=== PATIENT | female | born 1950 | race Caucasian/White ===

== ENCOUNTER 2022-01-07 14:11 | Inpatient (IN) | payer OTHER ==
[2022-01-07 14:58] LABS: Absolute Lymphocytes (CBC) 1.5 K/uL (0.7-4.9); Lymphocytes % 37.7 % (15.3-44.8); MCV 88.4 fL (80-100); MPV 9.7 fL (7.6-11.3); RBC Red Blood Cell Count 4.18 M/uL (3.86-4.86)
[2022-01-07 15:04] LABS: Protime INR 1.08
[2022-01-07 15:14] LABS: Albumin 3.8 g/dL (3.4-5.0); Bilirubin Total 0.5 mg/dL (0.2-1.0); Potassium 3.4 mmol/L (3.5-5.1)
--- NOTE | 2022-01-07 15:14 | RAD REPORT ---
EXAM DESCRIPTION: RAD - Chest Single View - 01/07/2022 3:04 pm CLINICAL HISTORY: AMS Chest pain. COMPARISON: Chest Single View dated 12/09/2021; CHEST SINGLE VIEW dated 09/27/2009 FINDINGS: Portable technique limits examination quality. The lungs are grossly clear. The heart is normal in size. No displaced fractures. IMPRESSION: No acute intrathoracic process suspected.
[2022-01-07] MEDS ORDERED: LORazepam 2 MG/ML VIAL ONE (15:16)
[2022-01-07 16:52] LABS: SARS-COV-2 RT PCR NEGATIVE (NEGATIVE)
--- NOTE | 2022-01-07 18:11 | RAD REPORT ---
EXAM DESCRIPTION: CT - Head Brain Wo Cont - 01/07/2022 5:32 pm CLINICAL HISTORY: AMS Headache, drowsiness, alteration of awareness. COMPARISON: No comparisons TECHNIQUE: All CT scans are performed using dose optimization technique as appropriate and may inclu de automated exposure control or mA/KV adjustment according to patient size. FINDINGS: No intracranial hemorrhage, hydrocephalus or extra-axial fluid collection.Moderate brain a trophy noted.No areas of brain edema or evidence of midline shift. Moderate opacification right maxillary antrum. The remainder the paranasal sinuses and mastoids are c lear. The calvarium is intact. IMPRESSION: No acute intracranial abnormality.
[2022-01-07 18:15] LABS: Urine Blood Negative (Negative); Urine Glucose Negative (Negative); Urine Protein 1+ (Negative); Urine Specific Gravity >=1.030 (1.005-1.030)
--- NOTE | 2022-01-07 18:33 | ER ---
Nurse's Notes [facility] Name: Ida Garvin Age: 71 yrs Sex: Female : 1950 Arrival Date: 01/07/2022 Time: 14:13 Bed 15 Private MD: Diagnosis: UTI/ Urinary tract infection, site not specified;Altered mental status, unspecified Presentation: 01/07 14:16 Chief complaint: EMS states: ALTERED AND COMBATIVE AT HOME WITH FAMILY. ESCAPED FROM [facility] Y/D. H/O SAME IN PAST. Coronavirus screen: At this time, the client does not indicate any symptoms associated with coronavirus-19. Ebola Screen: No symptoms or risks identified at this time. Initial Sepsis Screen: Does the patient meet any 2 criteria? Altered Mental Status. HR > 90 bpm. Yes Does the patient have a suspected source of infection? Yes: Dysuria/Frequency/Urgency/UTI. Risk Assessment: Do you want to hurt yourself or someone else? Patient reports no desire to harm self or others. Onset of symptoms was January 07, 2022. Care prior to arrival: Medication(s) given: 5MG VERSED IV initiated. 20 GA, in the right forearm, Glucose check: 117. 14:16 Method Of Arrival: EMS: [facility] bp 14:16 Acuity: MAMADOU 2 bp Triage Assessment: 14:20 General: Appears distressed, unkempt, Behavior is agitated, anxious, uncooperative. bp Pain: Denies pain. EENT: No deficits noted. Neuro: Level of Consciousness is awake, confused, Oriented to person, Speech INAPPROPRIATE. Cardiovascular: Rhythm is sinus tachycardia. Respiratory: No deficits noted. GI: No signs and/or symptoms were reported involving the gastrointestinal system. : No signs and/or symptoms were reported regarding the genitourinary system. Derm: No deficits noted. Musculoskeletal: No deficits noted. Historical: - Allergies: 14:19 dopenizil; bp - PMHx: 14:19 irregular heart beat; Hypertensive disorder; Hypercholesterolemia; Diabetes mellitus; bp Dementia; - Immunization history:: Adult Immunizations unknown. - Social history:: Smoking status: unknown. - Family history:: not pertinent. - Hospitalizations: : No recent hospitalization is reported. Screenin:20 Abuse screen: Denies threats or abuse. Denies injuries from another. Nutritional bp screening: No deficits noted. Tuberculosis screening: No symptoms or risk factors identified. Fall Risk Fall in past 12 months (25 points). Secondary diagnosis (15 points) dementia, IV access (20 points). Ambulatory Aid- None/Bed Rest/Nurse Assist (0 pts). Gait- Weak (10 pts.). Mental Status- Overestimates/Forgets Limitations (15 pts.). Total Ibarra Fall Scale indicates High Risk Score (45 or more points). Fall prevention measures have been instituted. Side Rails Up X 2 Placed Close to Nursing Station Frequent Obs/Assessments Occuring As available patient and family educated on Fall Prevention Program and Strategies. Assessment: 14:19 General: SEE TRIAGE NOTE. bp 15:20 Reassessment: PT INCREASINGLY UNCOOPERATIVE. REQUIRING PHYSICAL INTERVENTION TO RETURN bp TO BED. ATTEMPTING TO ELOPE AND RESISTANT TO HEALTH CARE ACTIVITIES. MD NOTIFIED. 17:09 Reassessment: PT SLEEPING, BUT AROUSES TO VERBAL STIMULI. REMAINS UNCOOPERATIVE. bp 17:22 Reassessment: MD AT B/S WITH FAMILY. bp 18:30 Reassessment: ADMIT INITIATED. PER FAMILY DISCUSSION WITH MD, SPOUSE UNABLE TO CARE FOR bp PT, AND PLACEMENT WILL BE NEEDED FOR DISCHARGE. Vital Signs: 14:16 BP 128 / 92; Pulse 93; Resp 30; Temp 98.1; Pulse Ox 97% ; bp 14:26 Temp 98.3(O); Pain 0/10; ss 15:20 BP 121 / 70; Pulse 73; Resp 27; Pulse Ox 97% ; bp 17:09 BP 111 / 62; Pulse 60; Resp 15; Pulse Ox 100% on 3 lpm NC; bp 18:00 BP 139 / 76; Pulse 76; Resp 16; Pulse Ox 100% ; bp 21:44 BP 91 / 50; Pulse 57; Pulse Ox 100% ; kl ED Course: 14:13 Patient arrived in ED. eb 14:14 Braulio Hilton, RN is Primary Nurse. bp 14:18 Triage completed. bp 14:19 Arm band placed on. bp 14:20 Patient has correct armband on for positive identification. Bed in low position. Call bp light in reach. Side rails up X2. 14:20 Maintain EMS IV. Dressing intact. Good blood return noted. Site clean \T\ dry. Gauge \T\ bp site: 20 GA R FA. 14:21 Phil Red MD is Attending Physician. rn 15:05 Chest Single View XRAY In Process Unspecified. EDMS 15:25 Blood Culture Adult (2) Sent. mm9 15:26 Initial lab(s) drawn, by me, sent to lab. EKG done, by ED staff, reviewed by Phil Red MD. 17:26 per patient's / [facility] is willing to accept his / they eb are requesting all results and clinical's to be faxed to [phone]. 17:33 CT Head Brain wo Cont In Process Unspecified. EDMS 18:05 Straight cath inserted, using sterile technique, 16 Fr. Specimen obtained. mm9 18:05 Urine Microscopic Only Sent. mm9 18:05 Urine Culture Sent. mm9 18:05 Urine Drug Screen Sent. mm9 18:05 Urine collected: straight cath specimen, cloudy, eamon colored. mm9 18:32 Angel Cortez MD is Hospitalizing Provider. rn 21:44 No provider procedures requiring assistance completed. Patient admitted, IV remains in kl place. 01/08 03:25 Primary Nurse role handed off by Braulio Hilton RN 06:20 Colt Robles RN is Primary Nurse. ke1 Administered Medications: 01/07 15:17 Drug: Ativan (LORazepam) 1 mg Route: IVP; Site: right forearm; bp 15:26 Follow up: Response: No adverse reaction bp 18:50 Drug: Rocephin (cefTRIAXone) 1 grams Route: IV; Rate: calculated rate; Site: right bp forearm; Medication: 21:44 VIS not applicable for this client. Outcome: 18:32 Decision to Hospitalize by Provider. rn 21:44 Admitted to ER Hold. Please see [facility] for further documentation. kl 21:44 Condition: stable 21:44 Instructed on the need for admit, Demonstrated understanding of instructions. 01/09 13:22 Patient left the ED. eb Signatures: Dispatcher [employer] EDMS Gisela Baires, RN Phil Pacheco MD MD rn Smirch, Shelby, RN RN Braulio Hilton RN RN Matilda Razo Prabha Mackay Colt Robles RN RN ke1 Martinez, Maria mm9
--- NOTE | 2022-01-07 18:33 | EDPHYS ---
Physician Documentation [facility] Name: Ida Garvin Age: 71 yrs Sex: Female : 1950 Arrival Date: 01/07/2022 Time: 14:13 Bed 15 Private MD: ED Physician Phil Red HPI: 01/07 15:19 This 71 yrs old Female presents to ER via EMS with complaints of AMS. rn 15:16 EMS reports patient escaped from [facility] recently, at family's house, becoming rn agitated and altered. Has does this before per family, and was UTI. Has dementia. Given 5mg versed by EMS for agitation.. 15:19 The patient presents with agitation, confusion. Onset: The symptoms/episode rn began/occurred at an unknown time. Possible causes: unknown. Associated signs and symptoms: Pertinent positives: agitation, Pertinent negatives: abdominal pain, chest pain, headache. Current symptoms: In the emergency department the patient's symptoms have improved. The patient has experienced a previous episode. The patient has not recently seen a physician. Historical: - Allergies: 14:19 dopenizil; bp - PMHx: 14:19 irregular heart beat; Hypertensive disorder; Hypercholesterolemia; Diabetes mellitus; bp Dementia; - Immunization history:: Adult Immunizations unknown. - Social history:: Smoking status: unknown. - Family history:: not pertinent. - Hospitalizations: : No recent hospitalization is reported. ROS: 15:19 Constitutional: Negative for fever, chills, and weight loss, Eyes: Negative for injury, rn pain, redness, and discharge, Neck: Negative for injury, pain, and swelling, Cardiovascular: Negative for chest pain, palpitations, and edema, Respiratory: Negative for shortness of breath, cough, wheezing, and pleuritic chest pain, Abdomen/GI: Negative for abdominal pain, nausea, vomiting, diarrhea, and constipation, Back: Negative for injury and pain, MS/Extremity: Negative for injury and deformity, Skin: Negative for injury, rash, and discoloration, Neuro: Negative for headache, weakness, numbness, tingling, and seizure. Exam: 15:19 Constitutional: This is a well developed, well nourished patient who is awake, alert, rn and in no acute distress. Head/Face: Normocephalic, atraumatic. Eyes: Periorbital areas with no swelling, redness, or edema. Cardiovascular: Regular rate and rhythm. No pulse deficits. Respiratory: No increased work of breathing, no retractions or nasal flaring. Abdomen/GI: Soft, non-tender Skin: Warm, dry MS/ Extremity: Pulses equal, no cyanosis. Neuro: Awake and alert, GCS 15, oriented to person, not place or time. Cranial nerves II-XII grossly intact. Motor strength 5/5 in all extremities. Sensory grossly intact. Vital Signs: 14:16 BP 128 / 92; Pulse 93; Resp 30; Temp 98.1; Pulse Ox 97% ; bp 14:26 Temp 98.3(O); Pain 0/10; ss 15:20 BP 121 / 70; Pulse 73; Resp 27; Pulse Ox 97% ; bp 17:09 BP 111 / 62; Pulse 60; Resp 15; Pulse Ox 100% on 3 lpm NC; bp 18:00 BP 139 / 76; Pulse 76; Resp 16; Pulse Ox 100% ; bp 21:44 BP 91 / 50; Pulse 57; Pulse Ox 100% ; kl MDM: 14:21 Patient medically screened. rn 17:28 ED course: Spoke at length with and family member, he states cannot take rn patient home, unable to control her, is combative and altered. Waiting on ct head and urine. states has spoken with [facility] and they are willing to accept patient. Will fax over clinicals when medically cleared. . 18:30 Differential Diagnosis: CVA, electrolyte abnormality, intracranial bleed, sepsis, UTI, rn volume depletion. Data reviewed: vital signs, nurses notes, lab test result(s), radiologic studies, CT scan, and as a result, I will admit patient. Counseling: I had a detailed discussion with the patient and/or guardian regarding: the historical points, exam findings, and any diagnostic results supporting the discharge/admit diagnosis, lab results, radiology results, the need for further work-up and treatment in the hospital. Response to treatment: the patient's symptoms have mildly improved after treatment, and as a result, I will admit patient. 01/07 14:31 Order name: Blood Culture Adult (2) rn 01/07 14:31 Order name: CBC with Diff; Complete Time: 15:21 rn 01/07 14:31 Order name: CMP; Complete Time: 15:21 rn 01/07 14:31 Order name: Lactate w/ 2H reflex if indic.; Complete Time: 15:21 rn 01/07 14:31 Order name: Protime (+inr); Complete Time: 15:21 rn 01/07 14:31 Order name: Ptt, Activated; Complete Time: 15:21 rn 01/07 14:31 Order name: Urine Culture rn 01/07 14:31 Order name: Urine Microscopic Only; Complete Time: 20:03 rn 01/07 14:31 Order name: Urine Drug Screen; Complete Time: 20:03 rn 01/07 14:31 Order name: COVID-19/FLU A+B; Complete Time: 16:53 rn 01/07 18:15 Order name: Urine Dipstick-Ancillary; Complete Time: 18:30 EDMS 01/08 03:40 Order name: CBC with Automated Diff EDMS 01/08 03:40 Order name: Basic Metabolic Panel EDMS 01/08 03:40 Order name: Phosphorus EDMS 01/07 14:31 Order name: Chest Single View XRAY; Complete Time: 15:21 rn 01/07 14:31 Order name: EKG; Complete Time: 14:31 rn 01/07 16:54 Order name: CT Head Brain wo Cont; Complete Time: 18:30 rn 01/08 03:40 Order name: Lipid Profile EDMS 01/08 03:40 Order name: Magnesium EDMS 01/08 03:40 Order name: Thyroid Stimulating Hormone EDMS 01/08 07:08 Order name: Hemoglobin A1c EDMS 01/08 09:08 Order name: Glucose, Ancillary Testing EDMS 01/08 15:00 Order name: Basic Metabolic Panel EDMS 01/08 15:21 Order name: Glucose, Ancillary Testing EDMS 01/08 20:21 Order name: Glucose, Ancillary Testing EDMS 01/09 03:35 Order name: Basic Metabolic Panel EDMS 01/09 03:37 Order name: CBC with Automated Diff EDMS 01/09 07:49 Order name: Glucose, Ancillary Testing EDMS 01/07 14:31 Order name: Accucheck; Complete Time: 15:10 rn 01/07 14:31 Order name: Cardiac monitoring; Complete Time: 15:10 rn 01/07 14:31 Order name: EKG - Nurse/Tech; Complete Time: 15:10 rn 01/07 14:31 Order name: IV Saline Lock - Large Bore; Complete Time: 15:10 rn 01/07 14:31 Order name: Labs collected and sent; Complete Time: 15:10 rn 01/07 14:31 Order name: O2 Per Protocol; Complete Time: 15:10 rn 01/07 14:31 Order name: O2 Sat Monitoring; Complete Time: 15:10 rn 01/07 14:31 Order name: Urine Dipstick-Ancillary (obtain specimen); Complete Time: 18:05 rn 01/07 14:31 Order name: Vital Signs; Complete Time: 15:11 rn Administered Medications: 15:17 Drug: Ativan (LORazepam) 1 mg Route: IVP; Site: right forearm; bp 15:26 Follow up: Response: No adverse reaction bp 18:50 Drug: Rocephin (cefTRIAXone) 1 grams Route: IV; Rate: calculated rate; Site: right bp forearm; Disposition Summary: 01/07/22 18:32 Hospitalization Ordered Hospitalization Status: Inpatient Admission rn Provider: Angel Cortez rn Condition: Stable rn Problem: new rn Symptoms: have improved rn Bed/Room Type: Standard rn Location: [facility] ER HOLD(01/08/22 12:22) eb Room Assignment: ERHOLD-(01/08/22 12:23) eb Diagnosis - UTI/ Urinary tract infection, site not specified rn - Altered mental status, unspecified rn Forms: - Medication Reconciliation Form rn - SBAR form rn Signatures: Dispatcher [employer] EDMS Velia Rosas RN RN mw Phil Red MD MD rn Peltier, Brian RN RN Matilda Syed Sophia, PA-C PA-C sb4 Corrections: (The following items were deleted from the chart) 19:33 18:32 Telemetry/MedSurg (Inpatient) rn mw 19:33 18:32 rn mw 01/08 12:08 1202 19:33 [facility] ER HOLD [facility] 01/08 12:08 1202 19:33 ERHOLD- [facility] 01/08 12:22 12:08 Telemetry/MedSurg (Inpatient) eb eb 12:22 12:08 [facility] eb eb 12:23 12:22 eb eb
[2022-01-07 18:34] LABS: Barbiturates NEGATIVE (NEGATIVE); Benzodiazepines POSITIVE (NEGATIVE); Cocaine NEGATIVE (NEGATIVE); METHAMPHETAM NEGATIVE (NEGATIVE); Methadone NEGATIVE (NEGATIVE); Opiates NEGATIVE (NEGATIVE); Phencyclidine NEGATIVE (NEGATIVE); THC Cannibis NEGATIVE (NEGATIVE); Urine Bacteria 20-50 /HPF (<20); Urine Mucus 3+ /HPF (None Seen)
[2022-01-07] MEDS ORDERED: NA CHLORIDE 0.9% 100 ML IV ONE (18:51)
[2022-01-07] MEDS ORDERED: CEFTRIAXONE 1000 MG/VIAL ONE (18:51)
--- NOTE | 2022-01-07 20:49 | P.HP ---
Certification for Inpatient Patient admitted to: Inpatient With expected LOS: <2 Midnights Patient will require the following post-hospital care: None Practitioner: I am a practitioner with admitting privileges, knowledge of patient current condition, hospital course, and medical plan of care. Services: Services provided to patient in accordance with Admission requirements found in Title 42 Section 412.3 of the Code of Federal Regulations Patient History Date of Service: 01/07/22 Reason for admission: UTI/AMS History of Present Illness: Patient is a 71 year old female with past medical history of Alzheimers, hypertension, hyperlipidemia, and hypothyroidism who presented to the ED with AMS. Patient is a resident of [facility] and apparently escaped from the facility yesterday. They did not allow her to come back because she has had issues with aggression. brought her to the ED because he cannot take care of her. [facility] originally said they were willing to accept, once medically cleared. However, her urine was positive for UTI. She was started on rocephin in ED. Patient is admitted for further management. Allergies No Known Allergies Allergy (Unverified 01/24/12 09:34) Home medications list reviewed: Yes - Past Medical/Surgical History Diabetic: Yes -: Hypertension -: Hyperlipidemia -: Hypothyroidism -: Dementia Past Surgical History: Unable to obtain Psychosocial/ Personal History: Patient is . She lives at [facility]. - Family History Family History: Reviewed- Non-Contributory - Social History Smoking Status: Never smoker Alcohol use: No CD- Drugs: No Caffeine use: Yes Place of Residence: Shelter Review of Systems Unremarkable Physical Examination - Vital Signs Temperature: 98.3 F Blood Pressure: 91/50 Pulse: 57 Respirations: 16 Pulse Ox (%): 100 (room air) - Physical Exam General: Alert, In no apparent distress, Other (Agitated) HEENT: Atraumatic, PERRLA, EOMI, Sclerae nonicteric Neck: Supple, 2+ carotid pulse no bruit, No LAD, Without JVD or thyroid abnormality Respiratory: Clear to auscultation bilaterally, Normal air movement Cardiovascular: Regular rate/rhythm, Normal S1 S2 Gastrointestinal: Normal bowel sounds, No tenderness Musculoskeletal: No tenderness Integumentary: No rashes Neurological: Normal speech, Normal strength at 5/5 x4 extr, Normal tone, Dementia - Studies Laboratory Data (last 24 hrs) 01/07/22 14:40: PT 11.9, INR 1.08, APTT 30.7 01/07/22 14:40: Sodium 142, Potassium 3.4 L, BUN 14, Creatinine 0.87, Glucose 113 H, Total Bilirubin 0.5, AST 30, ALT 26, Alkaline Phosphatase 84 01/07/22 14:40: WBC 4.00 L, Hgb 12.4, Hct 37.0, Plt Count 145 L Assessment and Plan - Problems (Diagnosis) (1) UTI (urinary tract infection) Current Visit: Yes Status: Acute Qualifiers: Urinary tract infection type: acute cystitis Hematuria presence: with hematuria Qualified Code(s): N30.01 - Acute cystitis with hematuria (2) AMS (altered mental status) Current Visit: Yes Status: Acute Qualifiers: Altered mental status type: unspecified Qualified Code(s): R41.82 - Altered mental status, unspecified (3) Hypertension Current Visit: Yes Status: Chronic Qualifiers: Hypertension type: primary hypertension Qualified Code(s): I10 - Essential (primary) hypertension (4) Dementia Current Visit: Yes Status: Chronic Qualifiers: Dementia type: Alzheimer's Alzheimer's disease onset: unspecified onset Dementia severity: moderate Dementia behavioral or psychological symptom: with agitation Qualified Code(s): G30.9 - Alzheimer's disease, unspecified; F02.B11 - Dementia in other diseases classified elsewhere, moderate, with agitation (5) Hyperlipidemia Current Visit: Yes Status: Chronic Qualifiers: Hyperlipidemia type: unspecified Qualified Code(s): E78.5 - Hyperlipidemia, unspecified (6) Hypothyroidism Current Visit: Yes Status: Chronic Qualifiers: Hypothyroidism type: acquired Qualified Code(s): E03.9 - Hypothyroidism, unspecified - Plan Urine culture obtained, continue rocephin. Patient does not meet sepsis criteria at this time. Patient was originally pleasant, but sundowning in the evening, leaving her room, aggressive with staff. Given 1x geodon. Will order ativan PRN. Case management consult for transfer to [facility] once medically cleared. [facility] accu checks with mild sliding scale and diabetic diet. A1C ordered for morning along with lipid panel. Reconcile and continue home medications. Monitor and replete electrolytes per protocol. Lovenox for VTE prophylaxis. Full code. Discharge Plan: Shelter Plan to discharge in: Greater than 2 days - Advance Directives Does patient have a Living Will: Yes Does patient have a Durable POA for Healthcare: No - Code Status/Comfort Care Code Status Assessed: Yes Code Status: Full Code Physician Review: Patient Assessed, Agree with Above Assessment and Plan Critical Care: No Time Spent Managing Pts Care (In Minutes): 50
[2022-01-07] MEDS ORDERED: ALBUTEROL 2.5 MG/3 ML NEB SOL NEB PRN (21:58)
[2022-01-07] MEDS ORDERED: ONDANSETRON 4 MG/2 ML VIAL IV PRN (21:58)
[2022-01-07] MEDS ORDERED: NA CHLORIDE 0.9% 1,000 ML IV SCH (21:58)
[2022-01-07] MEDS ORDERED: ACETAMINOPHEN 325 MG TABLET PO PRN (22:02)
[2022-01-07] MEDS ORDERED: ZIPRASIDONE MESYLA 20 MG/VIAL IM ONE ×2 (22:56→22:58)
[2022-01-07] MEDS ORDERED: WATER FOR INJ,STERILE 10 ML ONE (22:57)
[2022-01-07] MEDS ORDERED: WATER FOR INJ,STERILE 10 ML IM PRN (22:58)
[2022-01-08 00:49] VITALS: BMI 30.4
[2022-01-08 03:34] LABS: Absolute Lymphocytes (CBC) 1.5 K/uL (0.7-4.9); Hematocrit 35.8 % (36.0-45.0); Lymphocytes % 37.4 % (15.3-44.8); MCV 88.5 fL (80-100); MPV 9.7 fL (7.6-11.3); RBC Red Blood Cell Count 4.05 M/uL (3.86-4.86)
[2022-01-08 03:39] LABS: Magnesium 1.9 mg/dL (1.8-2.4); Phosphorus 4.6 mg/dL (2.5-4.9); Potassium 3.3 mmol/L (3.5-5.1); Thyroid Stimulating Hormone 0.237 uIU/mL (0.360-3.740)
[2022-01-08] MEDS: INSULIN -REGULAR HUMAN 50 UNIT/0.5 ML ML SQ SCH ×5 (07:00→20:45)
[2022-01-08] MEDS ORDERED: CEFTRIAXONE 1000 MG/VIAL ONE ×2 (08:05→20:38)
[2022-01-08] MEDS ORDERED: NA CHLORIDE 0.9% 50 ML IV ONE (08:05)
[2022-01-08] MEDS ORDERED: ENOXAPARIN 40 MG/0.4 ML SQ ONE (08:06)
[2022-01-08] MEDS ORDERED: KCL 20 MEQ/100 mL IVPB 100 ML IV ONE (08:07)
[2022-01-08] MEDS ORDERED: POTASSIUM CL SA 10 MEQ TAB PO SCH ×2 (09:00→11:00)
[2022-01-08] MEDS ORDERED: KCL 20 MEQ/100 mL IVPB 20 MEQ/100 ML BAG IV SCH (09:00)
[2022-01-08] MEDS ORDERED: CEFTRIAXONE 1,000 MG in NA CHLORIDE 0.9% 50 ML IVPB SCH (09:00)
[2022-01-08] MEDS: ENOXAPARIN 40 MG/0.4 ML SQ SCH (09:00)
[2022-01-08] MEDS: LORazepam 2 MG/ML VIAL IV PRN ×4 (11:00→22:32)
[2022-01-08] MEDS ORDERED: LORazepam 2 MG/ML VIAL ONE ×5 (11:02→22:27)
[2022-01-08] MEDS ORDERED: POTASSIUM CL SA 10 MEQ TAB PO ONE ×3 (11:32→21:00)
[2022-01-08] MEDS ORDERED: ZIPRASIDONE MESYLA 20 MG/VIAL IM ONE ×2 (12:20→12:53)
[2022-01-08] MEDS ORDERED: WATER FOR INJ,STERILE 10 ML ONE (12:20)
[2022-01-08] MEDS ORDERED: WATER FOR INJ,STERILE 10 ML IM PRN (12:53)
[2022-01-08] MEDS ORDERED: LORazepam 2 MG/ML VIAL IM ONE (12:56)
[2022-01-08 15:00] LABS: Potassium 3.5 mmol/L (3.5-5.1)
[2022-01-08] MEDS: NA CHLORIDE 0.9% 1,000 ML IV SCH (15:00)
[2022-01-08] MEDS: CEFTRIAXONE 1,000 MG in NA CHLORIDE 0.9% 50 ML IVPB SCH (18:00)
[2022-01-08] MEDS ORDERED: METFORMIN HCL 500 MG TAB ONE (20:37)
[2022-01-08] MEDS: METFORMIN ER 500 MG TAB PO SCH (20:44)
[2022-01-08] MEDS: PROPAFENONE HCL 150 MG TAB PO SCH (20:45)
[2022-01-08] MEDS ORDERED: QUETIAPINE 25 MG TAB PO SCH (21:00)
[2022-01-09 03:15] LABS: Absolute Lymphocytes (CBC) 1.7 K/uL (0.7-4.9); Hematocrit 38.9 % (36.0-45.0); Lymphocytes % 39.7 % (15.3-44.8); MCV 89.5 fL (80-100); MPV 10.2 fL (7.6-11.3); RBC Red Blood Cell Count 4.35 M/uL (3.86-4.86)
[2022-01-09 03:35] LABS: Potassium 3.5 mmol/L (3.5-5.1)
[2022-01-09] MEDS: NA CHLORIDE 0.9% 1,000 ML IV SCH (04:20)
[2022-01-09] MEDS ORDERED: LEVOTHYROXINE SOD 0.125 MG TAB PO SCH ×2 (06:00)
[2022-01-09] MEDS: CEFTRIAXONE 1,000 MG in NA CHLORIDE 0.9% 50 ML IVPB SCH (06:00)
[2022-01-09] MEDS ORDERED: CEFTRIAXONE 1000 MG/VIAL ONE (06:38)
[2022-01-09] MEDS ORDERED: LORazepam 2 MG/ML VIAL ONE (06:53)
[2022-01-09] MEDS: LORazepam 2 MG/ML VIAL IV PRN (06:59)
[2022-01-09] MEDS: INSULIN -REGULAR HUMAN 50 UNIT/0.5 ML ML SQ SCH ×2 (07:30→11:30)
[2022-01-09] MEDS: METFORMIN ER 500 MG TAB PO SCH (09:00)
[2022-01-09] MEDS ORDERED: CYANOCOBALAMIN 1,000 MCG TAB PO SCH (09:00)
[2022-01-09] MEDS ORDERED: PANTOPRAZOLE 40MG TABLET PO SCH (09:00)
[2022-01-09] MEDS ORDERED: LOSARTAN POTASSIUM 50 MG TABLET PO SCH (09:00)
[2022-01-09] MEDS ORDERED: LOSARTAN/HCTZ 50-12.5 PO SCH (09:00)
[2022-01-09] MEDS ORDERED: ROSUVASTATIN 10 MG TAB PO SCH (09:00)
[2022-01-09] MEDS: ENOXAPARIN 40 MG/0.4 ML SQ SCH (09:00)
[2022-01-09] MEDS ORDERED: QUETIAPINE 25 MG TAB PO SCH (09:00)
[2022-01-09] MEDS ORDERED: VITAMIN E 1000 UNIT PO SCH (09:00)
[2022-01-09] MEDS ORDERED: VITAMIN D 5,000 UNIT CAP PO SCH (09:00)
[2022-01-09] MEDS: PROPAFENONE HCL 150 MG TAB PO SCH (09:00)
[2022-01-09] MEDS ORDERED: ZIPRASIDONE MESYLA 20 MG/VIAL IM PRN ×2 (09:15→13:16)
[2022-01-09] MEDS ORDERED: ZIPRASIDONE MESYLA 20 MG/VIAL IM ONE (09:25)
[2022-01-09] MEDS ORDERED: WATER FOR INJ,STERILE 10 ML ONE (09:26)
--- NOTE | 2022-01-09 09:44 | P.PN ---
Subjective Date of Service: 01/08/22 Patient has been at [facility] at their memory care unit. She has been demented for many years. However she developed behavioral issues over the last year. She tends to verbally lash out at the staff. She has been on Seroquel which was started recently. Will increase dosage. Continue with Depakote. Patient will need evaluation at a [facility] psych facility. She had a UTI but she only has 10,000 colony-forming units. She is on Rocephin for the UTI. Cultures are negative. We can treat her with oral Omnicef. Review of Systems is unable to be obtained Physical Examination - Vital Signs Temperature: 97.2 F Blood Pressure: 152/73 Pulse: 57 Respirations: 17 Pulse Ox (%): 96 - Physical Exam General: Demented Respiratory: Clear to auscultation bilaterally, Normal air movement Cardiovascular: Regular rate/rhythm, Normal S1 S2 Gastrointestinal: Normal bowel sounds, Soft and benign, Non-distended Musculoskeletal: No clubbing, No swelling, No warmth Neurological: Normal gait, Normal speech, Normal strength at 5/5 x4 extr, Sensation intact, Cranial nerves 3-12 intact Assessment & Plan - Problems (Diagnosis) (1) Dementia with behavioral disturbance Current Visit: Yes Status: Acute (2) Dementia Current Visit: Yes Status: Chronic Qualifiers: Dementia type: Alzheimer's Alzheimer's disease onset: unspecified onset Dementia severity: moderate Dementia behavioral or psychological symptom: with agitation Qualified Code(s): G30.9 - Alzheimer's disease, unspecified; F02.B11 - Dementia in other diseases classified elsewhere, moderate, with agitation (3) Hyperlipidemia Current Visit: Yes Status: Chronic Qualifiers: Hyperlipidemia type: unspecified Qualified Code(s): E78.5 - Hyperlipidemia, unspecified (4) Hypertension Current Visit: Yes Status: Chronic Qualifiers: Hypertension type: primary hypertension Qualified Code(s): I10 - Essential (primary) hypertension (5) Hypothyroidism Current Visit: Yes Status: Chronic Qualifiers: Hypothyroidism type: acquired Qualified Code(s): E03.9 - Hypothyroidism, unspecified - Plan Plan: 1. Continue with oral omnicef 2. Increase Seroquel dosage 3. Start Depakote IV 4. We will start oral antidepressant 5. Patient is transferred to [facility] psych facility 6. GI DVT prophylaxis Discharge Plan: Psychiatry Plan to discharge in: Greater than 2 days - Advance Directives Does patient have a Living Will: Yes Does patient have a Durable POA for Healthcare: No - Code Status/Comfort Care Code Status: Full Code Physician Review: Patient Assessed, Agree with Above Assessment and Plan Critical Care: No Time Spent Managing PTS Care (In Minutes): 35
--- NOTE | 2022-01-09 09:45 | P.PN ---
Date of Service: 01/09/22 Subjective Patient continues to have behavioral issues. Family not able to manage at home. We will initiate transfer to [facility] facility. Patient has been at [facility] at their memory care unit. She has been demented for many years. However she developed behavioral issues over the last year. She tends to verbally lash out at the staff. She has been on Seroquel which was started recently. Will increase dosage. Continue with Depakote. Patient will need evaluation at a [facility] facility. She had a UTI but she only has 10,000 colony-forming units. She is on Rocephin for the UTI. Cultures are negative. We can treat her with oral Omnicef. Review of Systems is unable to be obtained Physical Examination - Vital Signs reviewed - Physical Exam General: Demented Respiratory: Clear to auscultation bilaterally, Normal air movement Cardiovascular: Regular rate/rhythm, Normal S1 S2 Gastrointestinal: Normal bowel sounds, Soft and benign, Non-distended Musculoskeletal: No clubbing, No swelling, No warmth Neurological: Normal gait, Normal speech, Normal strength at 5/5 x4 extr, Sensation intact, Cranial nerves 3-12 intact Assessment & Plan - Problems (Diagnosis) (1) Dementia with behavioral disturbance Current Visit: Yes Status: Acute (2) Dementia Current Visit: Yes Status: Chronic Qualifiers: Dementia type: Alzheimer's Alzheimer's disease onset: unspecified onset Dementia severity: moderate Dementia behavioral or psychological symptom: with agitation Qualified Code(s): G30.9 - Alzheimer's disease, unspecified; F02.B11 - Dementia in other diseases classified elsewhere, moderate, with agitation (3) Hyperlipidemia Current Visit: Yes Status: Chronic Qualifiers: Hyperlipidemia type: unspecified Qualified Code(s): E78.5 - Hyperlipidemia, unspecified (4) Hypertension Current Visit: Yes Status: Chronic Qualifiers: Hypertension type: primary hypertension Qualified Code(s): I10 - Essential (primary) hypertension (5) Hypothyroidism Current Visit: Yes Status: Chronic Qualifiers: Hypothyroidism type: acquired Qualified Code(s): E03.9 - Hypothyroidism, unspecified - Plan Continue with plan of care as mentioned below: 1. Continue with oral omnicef 2. Increase Seroquel dosage 3. Start Depakote IV 4. We will start oral antidepressant 5. Patient is transferred to [facility] 6. GI DVT prophylaxis Discharge Plan: Psychiatry Plan to discharge in: Greater than 2 days - Advance Directives Does patient have a Living Will: Yes Does patient have a Durable POA for Healthcare: No - Code Status/Comfort Care Code Status: Full Code Physician Review: Patient Assessed, Agree with Above Assessment and Plan Critical Care: No Time Spent Managing PTS Care (In Minutes): 35
[2022-01-09] MEDS ORDERED: PNEUMOCOCCAL VACCINE 0.5 ML IMVAC ONE (10:00)
[2022-01-09] MEDS ORDERED: LOSARTAN POTASSIUM 50 MG TABLET ONE (10:07)
[2022-01-09] MEDS ORDERED: PANTOPRAZOLE 40MG TABLET PO ONE (10:07)
[2022-01-09 10:34] VITALS: O2SAT 96
[2022-01-09 11:24] VITALS: BP 163/80; TEMP 98.1
[2022-01-09] MEDS ORDERED: WATER FOR INJ,STERILE 10 ML IM PRN ×2 (11:58→13:16)
[2022-01-09] MEDS ORDERED: CYANOCOBALAMIN 1,000 MCG TAB ONE (12:15)
--- NOTE | 2022-01-09 13:19 | P.DS ---
Discharge Date: 01/09/22 Disposition: TRANSFR TO OTHER-PSY/CD/REHAB Discharge Condition: GOOD Reason for Admission: UTI/AMS - Problems (1) Dementia with behavioral disturbance Current Visit: Yes Status: Acute (2) Dementia Current Visit: Yes Status: Chronic Qualifiers: Dementia type: Alzheimer's Alzheimer's disease onset: unspecified onset Dementia severity: moderate Dementia behavioral or psychological symptom: with agitation Qualified Code(s): G30.9 - Alzheimer's disease, unspecified; F02.B11 - Dementia in other diseases classified elsewhere, moderate, with agitation (3) Hyperlipidemia Current Visit: Yes Status: Chronic Qualifiers: Hyperlipidemia type: unspecified Qualified Code(s): E78.5 - Hyperlipidemia, unspecified (4) Hypertension Current Visit: Yes Status: Chronic Qualifiers: Hypertension type: primary hypertension Qualified Code(s): I10 - Essential (primary) hypertension (5) Hypothyroidism Current Visit: Yes Status: Chronic Qualifiers: Hypothyroidism type: acquired Qualified Code(s): E03.9 - Hypothyroidism, unspecified Brief History of Present Illness: Patient is a 71 year old female with past medical history of Alzheimers, hypertension, hyperlipidemia, and hypothyroidism who presented to the ED with AMS. Patient is a resident of [place] and apparently escaped from the facility yesterday. They did not allow her to come back because she has had issues with aggression. brought her to the ED because he cannot take care of her. [facility] originally said they were willing to accept, once medically cleared. However, her urine was positive for UTI. She was started on rocephin in ED. Patient is admitted for further management. Hospital Course: Patient is clinically still having some behavioral disturbances. Patient is demented. Patient is controlled with Geodon and Ativan. Attempting to go to a [facility] facility. Emergency room marketing secretary is assisting on arranging for transfer at this time as we do not have case management readily available today. Patient has been accepted to [facility] behavior unit. Vital Signs/Physical Exam: Temp Pulse Resp BP Pulse Ox 98.1 F 73 16 163/80 H 100 01/09/22 11:00 01/09/22 11:00 01/09/22 11:00 01/09/22 11:00 01/09/22 11:00 General: Alert, In no apparent distress, Oriented x3 Laboratory Data at Discharge: WBC 4.20 K/uL (4.3-10.9) L 01/09/22 02:46 Hgb 13.0 g/dL (12.0-15.0) 01/09/22 02:46 Hct 38.9 % (36.0-45.0) 01/09/22 02:46 Plt Count 119 K/uL (152-406) L 01/09/22 02:46 PT 11.9 SECONDS (9.5-12.5) 01/07/22 14:40 INR 1.08 01/07/22 14:40 APTT 30.7 SECONDS (24.3-36.9) 01/07/22 14:40 Sodium 140 mmol/L (136-145) 01/09/22 02:46 Potassium 3.5 mmol/L (3.5-5.1) 01/09/22 02:46 BUN 11 mg/dL (7-18) 01/09/22 02:46 Creatinine 0.67 mg/dL (0.55-1.3) 01/09/22 02:46 Glucose 103 mg/dL (74-106) 01/09/22 02:46 Phosphorus 4.6 mg/dL (2.5-4.9) 01/08/22 02:14 Magnesium 1.9 mg/dL (1.8-2.4) 01/08/22 02:14 Total Bilirubin 0.5 mg/dL (0.2-1.0) 01/07/22 14:40 AST 30 U/L (15-37) 01/07/22 14:40 ALT 26 U/L (12-78) 01/07/22 14:40 Alkaline Phosphatase 84 U/L (45-117) 01/07/22 14:40 Triglycerides 130 mg/dL (<150) 01/08/22 02:14 Cholesterol 129 mg/dL (<200) 01/08/22 02:14 HDL Cholesterol 64 mg/dL (40-60) H 01/08/22 02:14 Cholesterol/HDL Ratio 2.02 01/08/22 02:14 Home Medications: Cholecalciferol (Vitamin D3) [Vitamin D 5,000 IU Cap*] 5,000 unit PO DAILY 01/08/22 Cyanocobalamin (Vitamin B-12) [Vitamin B-12] 1,000 mcg PO DAILY 01/08/22 Levothyroxine Sodium [Levothyroxine] 125 mcg DAILY 01/08/22 Losartan/Hydrochlorothiazide [Losartan-Hctz 100-12.5 mg Tab] 25 mg PO DAILY 01/08/22 Metformin ER [Glucophage ER*] 500 mg PO BID 01/08/22 Pantoprazole [Protonix Tab*] 40 mg PO DAILY 01/08/22 Propafenone [Rythmol*] 150 mg PO BID 01/08/22 Quetiapine Fumarate [Seroquel] 25 mg PO DAILY 01/08/22 Rosuvastatin Calcium 5 mg PO DAILY 01/08/22 Vitamin E (Dl,Tocopheryl Acet) [Vitamin E] 1,000 unit PO DAILY 01/08/22 Cefdinir [Cefdinir*] 300 mg PO BID #14 cap 01/09/22 Quetiapine [Seroquel*] 50 mg PO BEDTIME #0 tab 01/09/22 New Medications: Cefdinir [Cefdinir*] 300 mg PO BID #14 cap Physician Discharge Instructions: -DC IV and DC to inpatient psychiatry Diet: Regular Activity: Fall precautions Followup: NONE,NONE [Primary Care Provider] -
[2022-01-09] MEDS ORDERED: VALPROATE SODIUM INJ 500 MG in NA CHLORIDE 0.9% 100 ML IV SCH (17:00)
--- NOTE | 2022-01-10 13:55 | EKG ---
Test Date: 2022-01-07 Test Time: 14:42:56 Car Dropper: BONG MEASUREMENT RESULTS: Intervals: Rate: 72 OK: 148 QRSD: 84 QT: 418 QTc: 457 M[place]: P: 52 OK: 148 QRS: -14 T: -33 INTERPRETIVE STATEMENTS: Normal sinus rhythm Nonspecific T wave abnormality Abnormal ECG Compared to ECG 11/04/2012 04:29:21 T-wave abnormality now present Electronically Signed On 01-10-22 13:51:05 TRY OUT PERSON by Gilson Taylor
== END 2022-01-09 13:22 | DRG 690 ==
LOC: ER 14:11 → ERHOLD 19:53 → 4TH 01-08 12:12
PROVIDERS: ADMIT Hospitalist; ATTEND Hospitalist
DX: N30.01 Acute cystitis with hematuria (principal); F02.B11 Dementia in other diseases classified elsewhere, moderate, with agitation; F05 Delirium due to known physiological condition; G30.9 Alzheimer's disease, unspecified; I10 Essential (primary) hypertension; E78.5 Hyperlipidemia, unspecified; E03.9 Hypothyroidism, unspecified; Z78.1 Physical restraint status; Z79.84 Long term (current) use of oral hypoglycemic drugs; Z79.890 Hormone replacement therapy; Z79.899 Other long term (current) drug therapy; Z20.822 Contact with and (suspected) exposure to COVID-19
CPT/HCPCS: 0240U; 36415; 51702; 70450; 71045; 80048; 80053; 80061; 80307; 81003; 81015; 82947; 83036; 83605; 83735; 84100; 84443; 85025; 85610; 85730; 87040; 87077; 87086; 87088; 87186; 93005; 94760; 96374; 96375; 99285; J1650; J3480; J3486